=== PATIENT | male | born 1960 | race Caucasian/White ===

== ENCOUNTER 2017-03-17 04:49 | Emergency (ER) | payer MEDICARE, MEDICAID ==
[~2017-03-17] VITALS: Ht 6374.2 cm; Wt 74.5 kg
[~2017-03-17 04:49] MED LIST: ALBU8.5H8 INH; DIVA500T9 PO; SPIIN IH; TIZA-248 PO; VILA10TA PO
[2017-03-17 05:00] VITALS: BP 102/43
== END 2017-03-17 05:03 | disposition home or self-care (01) ==
LOC: ER 04:51
DX: R41.82 Altered mental status, unspecified (principal); J44.9 Chronic obstructive pulmonary disease, unspecified; I25.2 Old myocardial infarction; Z98.890 Other specified postprocedural states
CPT/HCPCS: 99281

== ENCOUNTER 2017-12-02 01:26 | Emergency (ER) | payer MEDICARE, MEDICAID ==
[~2017-12-02] VITALS: Ht 193 cm; Wt 51.0 kg
[2017-12-02 01:27] VITALS: BP 112/83
[2017-12-02] MEDS ORDERED: ketorolac trometh inj. 60 MG/2 ML VIAL IM ONE (03:45)
[2017-12-02] MEDS ORDERED: ACET650S13 RC (04:11)
== END 2017-12-02 04:23 | disposition home or self-care (01) ==
LOC: ER 01:26
DX: S13.8XXA Sprain of joints and ligaments of other parts of neck, initial encounter (principal); I25.2 Old myocardial infarction; J44.9 Chronic obstructive pulmonary disease, unspecified; M19.90 Unspecified osteoarthritis, unspecified site; Z98.890 Other specified postprocedural states; Z79.899 Other long term (current) drug therapy; X58.XXXA Exposure to other specified factors, initial encounter; Y93.89 Activity, other specified; Y92.89 Other specified places as the place of occurrence of the external cause; Y99.8 Other external cause status
CPT/HCPCS: 96372; 99283; J1885

== ENCOUNTER 2018-03-26 23:48 | Emergency (ER) | payer MEDICARE, OTHER ==
[~2018-03-26] VITALS: Ht 193 cm; Wt 84.0 kg
[2018-03-27 00:15] VITALS: BP 111/63
== END 2018-03-27 02:57 | disposition left against medical advice (07) ==
LOC: ER 23:49
DX: M25.522 Pain in left elbow (principal); Z53.21 Procedure and treatment not carried out due to patient leaving prior to being seen by health care provider

== ENCOUNTER 2018-05-05 20:15 | Emergency (ER) | payer MEDICARE, OTHER ==
[~2018-05-05] VITALS: Ht 188 cm; Wt 72.7 kg
[2018-05-05 20:42] VITALS: BP 127/78
== END 2018-05-05 21:45 | disposition left against medical advice (07) ==
LOC: ER 20:16
DX: M79.662 Pain in left lower leg (principal); M79.661 Pain in right lower leg; Z53.21 Procedure and treatment not carried out due to patient leaving prior to being seen by health care provider

== ENCOUNTER 2019-01-06 06:19 | Emergency (ER) | payer MEDICARE, OTHER ==
[~2019-01-06] VITALS: Ht 193 cm; Wt 73.0 kg
[~2019-01-06 06:19] MED LIST changes: -TIZA-248 PO; +TIZA4TAB5 PO
[2019-01-06 06:34] VITALS: BP 110/66
== END 2019-01-06 07:47 | disposition home or self-care (01) ==
LOC: ER 06:20
DX: M79.641 Pain in right hand (principal); F17.210 Nicotine dependence, cigarettes, uncomplicated; F12.90 Cannabis use, unspecified, uncomplicated; I25.2 Old myocardial infarction; J44.9 Chronic obstructive pulmonary disease, unspecified; M19.90 Unspecified osteoarthritis, unspecified site; Z98.890 Other specified postprocedural states; Z79.899 Other long term (current) drug therapy
CPT/HCPCS: 73130; 99283

== ENCOUNTER 2019-04-14 02:15 | Emergency (ER) | payer MEDICARE ==
[~2019-04-14] VITALS: Ht 193 cm; Wt 75.2 kg
[2019-04-14 02:16] VITALS: BP 128/77
[2019-04-14] MEDS ORDERED: ALBU18HF2 INH (02:56)
[2019-04-14] MEDS ORDERED: ibuprofen 200mg tablet PO ONE (03:00)
--- NOTE | 2019-04-14 03:08 | NUR ---
ON ASSESSMENT OF FEET, BILATERAL PULSES PRESENT. FEET ARE WARM TO TOUCH, NO SWELLING AND CAP REFILL <3 SECS.
== END 2019-04-14 03:24 | disposition home or self-care (01) ==
LOC: ER 02:15
DX: M79.604 Pain in right leg (principal); I25.2 Old myocardial infarction; J44.9 Chronic obstructive pulmonary disease, unspecified; M19.90 Unspecified osteoarthritis, unspecified site; F41.9 Anxiety disorder, unspecified; F17.200 Nicotine dependence, unspecified, uncomplicated; F12.90 Cannabis use, unspecified, uncomplicated; Z98.890 Other specified postprocedural states; Z79.899 Other long term (current) drug therapy
CPT/HCPCS: 99283

== ENCOUNTER 2020-06-06 21:10 | Emergency (ER) | payer MEDICARE ==
[~2020-06-06] VITALS: Ht 193 cm; Wt 58.8 kg
[~2020-06-06 21:10] MED LIST changes: +ALBU18HF2 INH
[2020-06-06 21:44] VITALS: BP 131/88
== END 2020-06-06 23:15 | disposition home or self-care (01) ==
LOC: ER 21:11
DX: G89.29 Other chronic pain (principal); M54.2 Cervicalgia; I25.2 Old myocardial infarction; I10 Essential (primary) hypertension; J45.909 Unspecified asthma, uncomplicated; M19.90 Unspecified osteoarthritis, unspecified site; F12.90 Cannabis use, unspecified, uncomplicated; Z98.890 Other specified postprocedural states; Z79.899 Other long term (current) drug therapy; Z59.0 Homelessness
CPT/HCPCS: 99282